=== PATIENT | male | born 1990 | race Two or more races ===

== ENCOUNTER 2021-05-26 14:42 | Emergency (ER) | payer MEDICAID ==
[~2021-05-26] VITALS: Ht 180.3 cm; Wt 118.2 kg
[2021-05-26] MEDS ORDERED: LISI-894 PO (14:47)
[2021-05-26] MEDS ORDERED: IBUPROFEN 800 MG TABLET PO ONE (15:00)
[2021-05-26 16:55] VITALS: BP 145/81
== END 2021-05-26 16:54 | disposition home or self-care (01) ==
LOC: EMS 14:42
DX: S40.011A Contusion of right shoulder, initial encounter (principal); S60.221A Contusion of right hand, initial encounter; R07.81 Pleurodynia; F17.210 Nicotine dependence, cigarettes, uncomplicated; W01.0XXA Fall on same level from slipping, tripping and stumbling without subsequent striking against object, initial encounter; Y93.89 Activity, other specified; Y92.828 Other wilderness area as the place of occurrence of the external cause; Y99.8 Other external cause status
CPT/HCPCS: 71045; 99284; 99406